=== PATIENT | male | born 1980 | race Caucasian/White ===

== ENCOUNTER 2017-10-28 08:07 | Emergency (ER) | payer SELFPAY ==
[2017-10-28 08:13] VITALS: BP 148/96; BMI 25.8
[2017-10-28] MEDS ORDERED: TORADOL 60 MG VIAL IM ONE (08:42)
[2017-10-28] MEDS ORDERED: TORADOL 60 MG VIAL ONE (08:43)
--- NOTE | 2017-10-28 08:52 | DR.EXTPAIN ---
HPI - Time seen Time seen: 08:45 - PCP Primary Care Physician: NFD - Complaint/Symptoms Chief Complaint Doctor Comments: Patient admits to having problems with his right wrist for several years. He was told that he has carpal tunnel vs gout. He admits to having limited ROM with the right wrist. 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 He denies 10/10 pain but admits to pain radiating up the right forearm intermittently. Chief Complaint:: PT. C/O RIGHT WRIST PAIN AND SWELLING. PT. STATES HE WAS USING A DRILL YESTERDAY AND IT HAS CAUSED HIS PAIN AND SWELLING. PT. HAS HAD THIS PROBLEM ABOUT A YEAR AGO AND WAS TOLD IT COULD BE GOUT OR CARPAL TUNNEL BUT THE PROBLEM SUBSIDED. - Source History Provided: Patient - Mode of arrival Mode of Arrival: Ambulatory - Timing Onset of Chief Complaint: 10/27/17 PMH - PMH Past Medical History: No Past Surgical History: Yes Surgical History: Ortho Surgery, Other - Family History History of Family Medical Conditions: Yes Family Medical History: Diabetes Mellitus, Cancer - Social History Does patient currently use any type of tobacco product: Yes Have you used tobacco products in the last 12 months: Yes Type of Tobacco Use: Cigarettes Does any household member use tobacco: No Alcohol Use: Heavy Do you use any recreational Drugs:: No Lives With: Alone Lives Where: Home - infectious screening In the last 2 months have you had wt loss of >10#?: NO Have you had fever, night sweats or hemotysis?: No Have you traveled outside the country in the last 6 months?: No Isolation: Standard ROS - Review of Systems Eyes: No Symptoms Reported ENTM: No Symptoms Reported Respiratoy: No Symptoms Reported Cardiovascular: No Symptoms Reported Gastrointestinal/Abdominal: No Symptoms Reported Genitourinary: No Symptoms Reported Neurological: No Symptoms Reported Musculoskeletal: Wrist (right) Integumentary: No Symptoms Reported Hematologic/Lymphatic: No Symptoms Reported Endocrine: No Symptoms Reported Psychiatric: No Symptoms Reported All Other Systems: Reviewed and Negative PE - Vital Signs Vitals: Temperature 98.7 F Pulse Rate 73 Respiratory Rate 17 Blood Pressure 148/96 O2 Sat by Pulse Oximetry 99 - General Limitations: No Limitations General Appearance: Alert - Head Head Exam: Normal Inspection, Atraumatic - Eyes Eye exam: Normal Appearance, PERRL, EOMI - ENT ENT Exam: Normal Exam - Neck Neck Exam: Normal Inspection, Full ROM - Chest Chest Inspection: Normal Inspection - Respiratory Respiratory Exam: Normal Lung Sounds Bilat Respiratory Exam: Bilateral Clear to Auscultation - Cardiovascular Cardiovascular Exam: Regular Rate, Normal Rhythm - Abdominal Exam Abdominal Exam: Normal Inspection, Normal Bowel Sounds Abdominal Tenderness: negative: RUQ, RLQ, LUQ, LLQ, Epigastrium, Suprapubic, Diffuse, Mild, Moderate, Severe, Other - Extremities Extremities Exam: Joint Swelling (right wrist, non tender, non-erythematous) - Upper Extremities Shoulder Exam: Normal Inspection, Full ROM Arm Exam: Normal Inspection, Full ROM Elbow Exam: Normal Inspection Forearm Exam: Normal Inspection, Full ROM Hand Exam: Normal Inspection Neuromotor Exam: Normal Exam Neurosensory Exam: Normal Exam Hand Tendon Exam: Flexor Digitorium Profundus (Location), Flexor Digitorium Superficialis (Location) Upper Ext. Vascular Exam: Capillary Refill - Lower Extremities Hip/Pelvis Exam: Normal Inspection, Full ROM Upper Leg Exam: Normal Inspection Knee Exam: Normal Inspection Lower Leg Exam: Normal Inspection Ankle Exam: Normal Inspection, Full ROM Foot/Toe Exam: Normal Inspection, Full ROM Neurovascular/Tendon Exam: Normal Capillary Refill Gait Exam: Observed and Normal - Back Back Exam: Normal Inspection, Full ROM - Neurological Neurological Exam: Alert, Oriented X3, CN II-XII Intact - Psychiatric Psychiatric Exam: Normal Affect, Normal Mood - Skin Skin Exam: Warm, Dry, Intact ROR - Labs Reviewed Laboratory: Uric Acid 5.8 mg/dL (3.5-7.2) 10/28/17 08:54 - XRAY XRAY Interpreted by: Radiologist (Wrist: there is deformity and fragmentation of the carpal scaphoid. Irregular sclerosis is present involving the fragments. The remaining carpal bones appear intact. There is no bone destruction or pathologic calcification. There is proximal migration of the capitate. Impressinn: Deformity of scaphoid as described is most consistent with remote trauma. 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 Follow up imaging with MR recommended.) - Diagnosis Discharge Problem: Scaphoid fracture, wrist, closed Qualifiers: Encounter type: subsequent encounter Scaphoid bone location: unspecified portion of scaphoid Fracture alignment: displaced Laterality: right Fracture healing: with malunion Qualified Code(s): S62.001P - Unspecified fracture of navicular [scaphoid] bone of right wrist, subsequent encounter for fracture with malunion - Discharge Plan Condition: Stable - Follow ups/Referrals Follow ups/Referrals: NFD,None [Primary Care Provider] - 3 days - Instructions
--- NOTE | 2017-10-28 09:20 | RAD ---
Examination: Right wrist, three views History: Wrist pain and swelling Findings: There is deformity and fragmentation of the carpal scaphoid. Irregular sclerosis is present involving the fragments. The remaining carpal bones appear intact. There is no bone destruction or p athologic calcification. There is proximal migration of the capitate. Impression: Deformity of scaphoid as described is most consistent with remote trauma. Complicating av ascular necrosis is probable. Follow-up imaging with MR recommended. Reported By:
== END 2017-10-28 09:36 | disposition home or self-care (01) ==
LOC: ER 08:18
DX: S62.001P Unspecified fracture of navicular [scaphoid] bone of right wrist, subsequent encounter for fracture with malunion (principal); W31.1XXD Contact with metalworking machines, subsequent encounter; Y93.89 Activity, other specified; Y92.89 Other specified places as the place of occurrence of the external cause
CPT/HCPCS: 36415; 73100; 84550; 96372; 99282; 99284; J1885